=== PATIENT | male | born 1970 | race Asian ===

== ENCOUNTER 2023-07-17 18:08 | Emergency (ER) | payer OTHER, SELFPAY ==
[2023-07-17 18:15] VITALS: BP 124/82; PULSE 72; RESP 18; TEMP 36.9; O2SAT 97; BMI 25.4
--- NOTE | 2023-07-17 19:10 | ED_ITS ---
HPI - General Adult <Carleen Valladares PA-C - Last Filed: 07/18/23 09:22> General Chief complaint: Blood/Body fluid exposure Stated complaint: needle poke at work Time Seen by Provider: 07/17/23 18:22 Source: patient Mode of arrival: Ambulatory History of Present Illness HPI narrative: Patient is a 53-year-old male with type 2 diabetes who works as a visual merchandising assistant on a tugboat. He was cleaning the galley of the boat when he noticed a small needle near the sample maker hand. He attempted to gently pick it up to dispose of it and in the process it slipped and stuck his finger. It appears by the photo he shows to be a small insulin pen needle that screws on. Has no idea whose needle it was. He suspects it was used as it was opened and sitting out on the counter. He immediately washed the area and was sent to the emergency room by his boat washer for assessment. 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 He is able to pull up his [employer] account on his phone and I can see a Tdap in 2017 but his hepatitis-B vaccination status is unknown and not in his [employer] account. Tdap 2017. After discussion on the phone with the and with the patient, patient would like to receive hepatitis-B prophylaxis as well as take HIV prophylaxis. Related Data Previous Rx's Medication Instructions Recorded dolutegravir 50 mg tablet 50 mg PO DAILY #28 tabs 07/17/23 emtricitabine 200 mg-tenofovir 1 tab PO DAILY #28 tabs 07/17/23 disoproxil fumarate 300 mg tablet (Truvada) Allergies Allergy/AdvReac Type Severity Reaction Status Date / Time No Known Drug Allergies Allergy Verified 07/17/23 18:14 Review of Systems <Carleen Valladares PA-C - Last Filed: 07/18/23 09:22> Review of Systems ROS Unobtainable: All systems reviewed & are unremarkable except as noted in HPI and below Patient History <Carleen Valladares PA-C - Last Filed: 07/18/23 09:22> Social History Smoking Status: Never smoker Smoking Status: Never smoker alcohol intake frequency: holidays/special occasions only Substance Use Type: does not use Exam <Carleen Valladares PA-C - Last Filed: 07/18/23 09:22> Narrative Exam Narrative: GENERAL: 53 year old patient appears stated age. Well-developed patient, in no acute distress. NEURO: AOx3. HEAD: Atraumatic. Normocephalic. EYES: Pupils equal round and reactive. Extraocular motions intact. No scleral icterus. No injection or drainage. ENT: Nose without bleeding or purulent drainage. RESPIRATORY: No distress EXTREMITIES: No edema or joint tenderness. SKIN: No rash or erythema of visible areas. No wound at the puncture site. Initial Vital Signs Initial Vital Signs: Vital Signs Temperature 98.5 F 07/17/23 18:15 Pulse Rate 72 07/17/23 18:15 Respiratory Rate 18 07/17/23 18:15 Blood Pressure 124/82 07/17/23 18:15 Pulse Oximetry 97 07/17/23 18:15 Oxygen Delivery Method Room Air 07/17/23 18:15 <Nubia Alvarenga MD - Last Filed: 07/18/23 18:01> Initial Vital Signs Initial Vital Signs: Vital Signs Temperature 98.5 F 07/17/23 18:15 Pulse Rate 72 07/17/23 18:15 Respiratory Rate 18 07/17/23 18:15 Blood Pressure 124/82 07/17/23 18:15 Pulse Oximetry 97 07/17/23 18:15 Oxygen Delivery Method Room Air 07/17/23 18:15 Course <Carleen Valladares PA-C - Last Filed: 07/18/23 09:22> Orders Ordered: Discontinued Medications Diphtheria/Tetanus/Acell Pertussis (Tet,Diph,Pertuss(Acell),Vac/Pf 0.5 Ml Syringe) 0.5 ml IM .ONCE ONE Stop: 07/17/23 18:23 Last Admin: 07/17/23 19:50 Dose: Not Given Documented By: DIONISIO Dolutegravir Sodium (Dolutegravir Prepack) 1 prepack MISC SEEINSTR ONE Stop: 07/17/23 19:08 Emtricitabine/Tenofovir (Emtricitabin/Tenofovir Prepack) 1 prepack MISC SEEINSTR ONE Stop: 07/17/23 19:08 Hepatitis B Immune Globulin (Hepatitis B Immune Globulin 5 Ml Vial) 4.3 ml 0.06 ml/kg (4.3 ml) IM NOW ONE Stop: 07/17/23 19:08 Last Admin: 07/17/23 20:04 Dose: 4.3 ml Documented By: JAVID Vital Signs Vital signs: Vital Signs - 8 hr 07/17/23 18:15 Temperature 98.5 F Pulse Rate 72 Respiratory Rate 18 Blood Pressure 124/82 Pulse Oximetry 97 Oxygen Delivery Method Room Air <Nubia Alvarenga MD - Last Filed: 07/18/23 18:01> Orders Ordered: Discontinued Medications Diphtheria/Tetanus/Acell Pertussis (Tet,Diph,Pertuss(Acell),Vac/Pf 0.5 Ml Syringe) 0.5 ml IM .ONCE ONE Stop: 07/17/23 18:23 Last Admin: 07/17/23 19:50 Dose: Not Given Documented By: DIONISIO Dolutegravir Sodium (Dolutegravir Prepack) 1 prepack MISC SEEINSTR ONE Stop: 07/17/23 19:08 Emtricitabine/Tenofovir (Emtricitabin/Tenofovir Prepack) 1 prepack MISC SEEINSTR ONE Stop: 07/17/23 19:08 Hepatitis B Immune Globulin (Hepatitis B Immune Globulin 5 Ml Vial) 4.3 ml 0.06 ml/kg (4.3 ml) IM NOW ONE Stop: 07/17/23 19:08 Last Admin: 07/17/23 20:04 Dose: 4.3 ml Documented By: JAVID Vital Signs Vital signs: Vital Signs - 8 hr 07/17/23 18:15 Temperature 98.5 F Pulse Rate 72 Respiratory Rate 18 Blood Pressure 124/82 Pulse Oximetry 97 Oxygen Delivery Method Room Air Medical Decision Making <Carleen Valladares PA-C - Last Filed: 07/18/23 09:22> Lab Data 07/17/23 18:50 Labs: Lab Results 07/17/23 07/17/23 Range/Units 18:50 18:50 Sodium 138 (137-145) mmol/L Potassium 4.2 (3.4-5.1) mmol/L Chloride 103 (98-107) mmol/L Carbon Dioxide 25 (22-32) mmol/L BUN 27 H (9-20) mg/dL Creatinine 1.24 (0.66-1.25) mg/dL Estimated GFR > 60 (>60) mL/min BUN/Creatinine Ratio 21.8 (6-22) Glucose 116 H (70-100) mg/dL Calcium 9.2 (8.4-10.2) mg/dL Total Bilirubin 0.6 (0.2-1.3) mg/dL AST 25 (17-59) IU/L ALT 26 25 (<50) IU/L Alkaline Phosphatase 55 (38-126) U/L Total Protein 7.5 (6.3-8.2) g/dL Albumin 4.4 (3.5-5.0) g/dL Globulin 3.1 (1.7-4.1) g/dL Albumin/Globulin Ratio 1.4 (1.0-2.8) Hep Bs Antigen Negative (NEGATIVE) s/c Hepatitis C Antibody Negative (NEGATIVE) s/c HIV 1&2 Ab/P24 Ag 4thGn Negative (NEGATIVE) MDM Narrative Medical decision making narrative: Multiple etiologies for patient's symptoms considered including, but not limited to: Body fluid exposure. Patient had a needlestick injury with the unknown source in an occupational setting. Patient's hepatitis-B vaccination status is unknown. Tdap in 2017, which does not need updating at this time. Exposure appears lower risk based on the information that I have, but source patient is unknown. After discussion with the patient and his , patient would like to go ahead with hepatitis-B prophylaxis and HIV prophylaxis. Patient has diabetes. Screening chemistry without clinically significant abnormality, completed prior to starting HIV prophylaxis. Patient received HBIG in the emergency room and we will need the hepatitis-B vaccine series, which she can get with his primary care. He lives in [place] and has a primary care doctor there. 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 Strictly instructed that he needs to start patient within 72 hours of the exposure. He needs to follow up with his PCP for monitoring and reassessment. At the time of this note, his labs showed hepatitis-B surface antigen negative, status C antibody negative, HIV 1 and 2-, and hepatitis-B surface antibody pending. Patient instructed to follow up closely with his primary care. L&I paperwork submitted. Patient's symptoms improved over duration of stay with above-stated therapies. Findings and discharge diagnosis discussed with patient/family followed by verbalization of understanding Return precautions discussed with patient/family whom verbalize understanding of diagnosis and plan <Nubia Alvarenga MD - Last Filed: 07/18/23 18:01> Lab Data Labs: Lab Results 07/17/23 07/17/23 Range/Units 18:50 18:50 Sodium 138 (137-145) mmol/L Potassium 4.2 (3.4-5.1) mmol/L Chloride 103 (98-107) mmol/L Carbon Dioxide 25 (22-32) mmol/L BUN 27 H (9-20) mg/dL Creatinine 1.24 (0.66-1.25) mg/dL Estimated GFR > 60 (>60) mL/min BUN/Creatinine Ratio 21.8 (6-22) Glucose 116 H (70-100) mg/dL Calcium 9.2 (8.4-10.2) mg/dL Total Bilirubin 0.6 (0.2-1.3) mg/dL AST 25 (17-59) IU/L ALT 26 25 (<50) IU/L Alkaline Phosphatase 55 (38-126) U/L Total Protein 7.5 (6.3-8.2) g/dL Albumin 4.4 (3.5-5.0) g/dL Globulin 3.1 (1.7-4.1) g/dL Albumin/Globulin Ratio 1.4 (1.0-2.8) Hep Bs Antigen Negative (NEGATIVE) s/c Hepatitis C Antibody Negative (NEGATIVE) s/c HIV 1&2 Ab/P24 Ag 4thGn Negative (NEGATIVE) Discharge Plan Departure Patient Disposition: Home Clinical Impression: Exposure to blood or body fluid Instructions: DI for Accidental Exposure to Body Fluids Activity Restrictions/Additional Instructions: *You were seen in the emergency room for possible exposure to body fluids. Because we do not know your hepatitis-B vaccination status, we have given you hepatitis-B immunoglobulin in the emergency room. You will also need to get the hepatitis-B vaccine series from your doctor. I have sent a prescription for HIV post exposure prophylaxis medications to the pharmacy. You should take these medications for 28 days. You will require repeat blood work. Please schedule a follow up appointment with your primary care doctor in 2 weeks. *What to do: *Please continue to take your regular medications as directed. [x] New medication prescriptions sent to your pharmacy: [facility] in [place]. This medicine needs to be started within 72 hours of the needle stick exposure. [ ] New medication written as a paper prescription [ ] No new medications given *Please follow up with your primary care provider in 2-3 days, call for an appointment. Let them know you were seen in the Emergency Department and that we ask that you be seen in follow up. We will electronically transmit a record of today's note if your PCP is in our system *If you do not have a primary care provider please contact the [facility] Resource line at [phone]. They will ask some questions about your medical history and help get you set up with a doctor in the community. *Return to Emergency Department if you should have any new, worsening or concerning symptoms, such as [fever greater than 101 F, shaking chills, worsening pain, persistent vomiting or other concerning symptoms]. Prescriptions: New emtricitabine-tenofovir (TDF) [Truvada] 200-300 mg tablet 1 tab PO DAILY Qty: 28 0RF dolutegravir 50 mg tablet 50 mg PO DAILY Qty: 28 0RF Referrals: Miscellaneous,DoctorMD [Primary Care Provider] - Stand Alone Forms: Patient Portal/API, Work Release Note ED Sign-out <Nubia Alvarenga MD - Last Filed: 07/18/23 18:01> Cosign ED Attending Cosromanature Attestation: I was immediately available in the department for consultation throughout this patient's visit. Nubia Alvarenga MD
[2023-07-17 19:20] LABS: Alanine Aminotransferase 26 IU/L (<50)
[2023-07-17 19:37] LABS: Alanine Aminotransferase 25 IU/L (<50); Albumin 4.4 g/dL (3.5-5.0); Albumin Globulin Ratio 1.4 (1.0-2.8); Alkaline Phosphatase 55 U/L (38-126); Aspartate Aminotransferase 25 IU/L (17-59); BUN Creatinine Ratio 21.8 (6-22); Bilirubin Total 0.6 mg/dL (0.2-1.3); Blood Urea Nitrogen 27 mg/dL (9-20); Calcium 9.2 mg/dL (8.4-10.2); Carbon Dioxide 25 mmol/L (22-32); Chloride 103 mmol/L (98-107); Estimated Glomerular Filt Rate > 60 mL/min (>60); Globulin 3.1 g/dL (1.7-4.1); Glucose 116 mg/dL (70-100); HEMOLYSIS < 15 (0-50); Potassium 4.2 mmol/L (3.4-5.1); Sodium 138 mmol/L (137-145); Total Protein 7.5 g/dL (6.3-8.2)
[2023-07-17] MEDS: HEPATITIS B IMMUNE GLOBULIN 5 ML VIAL 4.3 ML IM (20:04)
[2023-07-17 20:14] LABS: Hepatitis B Surface Antigen NEGATIVE s/c (NEGATIVE)
[2023-07-17 20:26] VITALS: BP 133/78; PULSE 70; O2SAT 96
[2023-07-17 20:32] LABS: HIV 1 & 2 Ab/Ag 4th Gen Combo NEGATIVE (NEGATIVE); Hep C Virus Ab w/Reflex Quant NEGATIVE s/c (NEGATIVE)
[2023-07-19 07:36] LABS: Hepatitis B Surf Ab Qualitativ Reactive (.)
--- NOTE | 2023-07-19 18:25 | PC.NURSE ---
Pt called requesting that prescriptions be sent to [facility]. Alesia FUNK sent scripts to [facility] on [facility]. She left phone message for pt.
== END 2023-07-17 20:25 | disposition home or self-care (01) ==
PROVIDERS: Emergency Provider Physician Assistant
DX: Z77.21 Contact with and (suspected) exposure to potentially hazardous body fluids (principal); W46.0XXA Contact with hypodermic needle, initial encounter
CPT/HCPCS: 36415; 80053; 84460; 86706; 86803; 87340; 87389; 96372; 99283; J1571

== ENCOUNTER 2023-07-20 13:28 | Emergency (ER) | payer OTHER, SELFPAY ==
[2023-07-20 13:32] VITALS: BP 136/85; PULSE 86; RESP 18; TEMP 36.1; O2SAT 97; BMI 25.4
[2023-07-20 14:06] VITALS: PULSE 79; O2SAT 95
[2023-07-20 14:10] VITALS: PULSE 85; O2SAT 95
--- NOTE | 2023-07-20 14:10 | PC.NURSE ---
patient states his company made him come here due to his high blood pressure reading he had yesterday morning. patient states it was 180. but he also had some hot sensation on the left side of his face last night, pt describes this feeling like spicy in his eye. it was so severe he could not sleep but it is feeling better now.
[2023-07-20 14:20] VITALS: PULSE 83; O2SAT 95
--- NOTE | 2023-07-20 14:21 | ED.NEUROSD ---
HPI - Neuro Symptoms/Deficit General Chief Complaint: Neuro Symptoms/Deficit Stated Complaint: follow up? Time Seen by Provider: 07/20/23 13:54 Source: patient Mode of arrival: Ambulatory History of Present Illness HPI Narrative: 53-year-old male with history of [id number] diabetes, hypertension, hyperlipidemia presents for abnormal sensation in his left face as well as elevated blood pressure. Patient was seen on 07/17/2023 after accidental needle stick. After discussion with the patient's patient elected to take hepatitis-B prophylaxis as well as HIV prophylaxis. Patient states that last night he noticed a ?spicy? sensation in his left face and measured his blood pressure. He states it normally his systolic blood pressures less than 150, but it went as high as 183 systolic last night. Patient became concerned and his work referred him to the emergency department. He states that his face feels like he put [place] on it. Denies numbness, weakness, difficulty ambulating, headache, vision changes. On Anticoagulants: No Related Data Previous Rx's Medication Instructions Recorded dolutegravir 50 mg tablet 50 mg PO DAILY #28 tabs 07/19/23 emtricitabine 200 mg-tenofovir 1 tab PO DAILY #28 tabs 07/19/23 disoproxil fumarate 300 mg tablet (Truvada) Allergies Allergy/AdvReac Type Severity Reaction Status Date / Time No Known Drug Allergies Allergy Verified 07/20/23 13:32 Review of Systems Review of Systems Narrative: Negative except as noted above Hematologic/Lymphatic On Anticoagulants: No Patient History Social History Smoking Status: Never smoker Smoking Status: Never smoker alcohol intake frequency: holidays/special occasions only Substance Use Type: does not use Exam Initial Vital Signs Initial Vital Signs: Vital Signs Temperature 97.0 F L 07/20/23 13:32 Pulse Rate 86 07/20/23 13:32 Respiratory Rate 18 07/20/23 13:32 Blood Pressure 136/85 07/20/23 13:32 Pulse Oximetry 97 07/20/23 13:32 Oxygen Delivery Method Room Air 07/20/23 13:32 Const: Awake, alert, no acute distress, nontoxic appearing Cardiac: regular rate, regular rhythm RESP: unlabored, clear bilaterally, no wheezing GI: Soft, nontender, nondistended, no rebound, no guarding MSK: Atraumatic, full range of motion, pulses equal Skin: Warm, Dry, intact, no rashes Neuro: AO x3, CN II-XII grossly intact, moves all extremities, sensation intact and equal bilaterally Course Vital Signs Vital signs: Vital Signs - 8 hr 07/20/23 13:32 07/20/23 14:06 07/20/23 14:10 Temperature 97.0 F L Pulse Rate 86 79 85 Respiratory Rate 18 Blood Pressure 136/85 Pulse Oximetry 97 95 95 Oxygen Delivery Method Room Air 07/20/23 14:20 07/20/23 14:30 Temperature Pulse Rate 83 Respiratory Rate Blood Pressure 119/57 L Pulse Oximetry 95 Oxygen Delivery Method Room Air MDM - Neuro Symptoms/Deficit MDM Narrative Medical decision making narrative: Patient reporting a burning sensation to the left side of his face after starting taking Truvada as well as concerned about his high blood pressure. Patient's blood pressure 140 systolic while in the emergency room, which patient states this is normal. There is no focal deficit on exam, patient has intact sensation bilaterally, no weakness, facial droop, speech difficulties. NIH score of 0. Patient takes 25 mg of lisinopril, he was counseled that if he has issues with his blood pressure he may increase his lisinopril to 40 mg daily and follow up with his primary care physician. Patient was counseled on the risks and benefits of continuing Truvada even with his likely side effects. Patient states he is concerned that he may have symptoms again when he goes underway for a void for work. He was again counseled on the risks and benefits of continuing this medication. Risk for HIV/aids is extremely low and patient could likely cease this medication with no detriment to him. Again, PCP follow up advised. Discharge Plan Departure Patient Disposition: Home Clinical Impression: Hypertension Instructions: High Blood Pressure Activity Restrictions/Additional Instructions: Increase your lisinopril to 40 mg daily. I do not know the cause of the abnormal facial sensation, it may be related to the Truvada your taking. Stopped the Truvada for at least 48 hours, if you would like to restart this medication you can, however it is entirely your decision. Please follow up with your primary care physician if you continued to notice elevated blood pressures. Prescriptions: No Action dolutegravir 50 mg tablet 50 mg PO DAILY Qty: 28 0RF emtricitabine-tenofovir (TDF) [Truvada] 200-300 mg tablet 1 tab PO DAILY Qty: 28 0RF Referrals: Miscellaneous,Doctor, MD [Primary Care Provider] - Stand Alone Forms: Patient Portal/API, Work Release Note
[2023-07-20 14:30] VITALS: BP 119/57
== END 2023-07-20 14:41 | disposition home or self-care (01) ==
PROVIDERS: Emergency Provider Emergency Medicine
DX: R20.8 Other disturbances of skin sensation (principal); I10 Essential (primary) hypertension; Y99.0 Civilian activity done for income or pay
CPT/HCPCS: 99281; 99282